=== PATIENT | male | born 1975 | race Two or more races ===

== ENCOUNTER 2017-07-16 09:31 | Outpatient (CLI) | payer OTHER | END 2017-07-16 09:40 | disposition home or self-care (01) | LOC: LAB 09:31 | DX: D64.89 Other specified anemias (principal); E11.9 Type 2 diabetes mellitus without complications; E78.2 Mixed hyperlipidemia; I10 Essential (primary) hypertension; E03.8 Other specified hypothyroidism; R97.20 Elevated prostate specific antigen [PSA] ==

== ENCOUNTER 2018-07-01 09:58 | Outpatient (CLI) | payer OTHER ==
[~2018-07-01 09:58] MED LIST: DICLOFENAC POTA50 MG PO; TIZANIDINE HCL2 MG PO
== END 2018-07-01 10:04 | disposition home or self-care (01) ==
LOC: LAB 09:58
DX: D64.89 Other specified anemias (principal); E11.9 Type 2 diabetes mellitus without complications; E78.2 Mixed hyperlipidemia; K76.89 Other specified diseases of liver; E03.8 Other specified hypothyroidism; E55.9 Vitamin D deficiency, unspecified; R29.898 Other symptoms and signs involving the musculoskeletal system; R97.20 Elevated prostate specific antigen [PSA]

== ENCOUNTER 2020-09-28 00:13 | Outpatient (CLI) | payer OTHER | END 2020-09-28 00:14 | disposition home or self-care (01) | LOC: PPH VACUNA 00:13 | DX: Z23 Encounter for immunization (principal) ==

== ENCOUNTER 2025-05-21 12:39 | Outpatient (CLI) | payer OTHER | END 2025-05-21 12:42 | disposition home or self-care (01) | LOC: RAD 12:39 | PROVIDERS: ATTEND Orthopaedic Surgery | DX: M25.511 Pain in right shoulder (principal); M25.512 Pain in left shoulder; M75.81 Other shoulder lesions, right shoulder; M75.82 Other shoulder lesions, left shoulder ==